=== PATIENT | male | born 1995 | race African-American/Black ===

== ENCOUNTER 2021-07-17 01:09 | Emergency (ER) | payer SELFPAY ==
[2021-07-17] MEDS ORDERED: Ketorolac 30 MG/ML SDV IVPUSH ONE (01:13)
[2021-07-17] MEDS ORDERED: Ondansetron 4 MG/2 ML SDV IVPUSH ONE (01:13)
[2021-07-17] MEDS ORDERED: Sodium Chloride 0.9% 10 ML Syringe FLUSH PRN (01:13)
[2021-07-17] MEDS ORDERED: Sodium Chloride 0.9% 1,000 ML IV ONE (01:13)
[2021-07-17] MEDS ORDERED: Sodium Chloride 0.9% 2.5 ML Syringe FLUSH PRN (01:13)
[2021-07-17 01:44] LABS: BLOOD UREA NITROGEN,BUN 12 mg/dL (7.0-18.0); CARBON DIOXIDE,CO2 24.3 mmol/L (21.0-32.0); CHLORIDE,CL 104 mmol/L (98-107); GLUCOSE RANDOM 159 mg/dL (74-106); LIPASE 68 U/L (73-393); POTASSIUM,K 3.5 mmol/L (3.5-5.1); SODIUM,NA 140 mmol/L (136-148)
== END 2021-07-17 04:07 | disposition home or self-care (01) ==
LOC: MW.ED 01:09
DX: K52.9 Noninfective gastroenteritis and colitis, unspecified (principal); Z88.0 Allergy status to penicillin
CPT/HCPCS: 36415; 74022; 80053; 81001; 83605; 83690; 85025; 96361; 96374; 96375; 99284; J1885; J2405; J3490; J7030

== ENCOUNTER 2022-05-21 13:20 | Emergency (ER) | payer BC ==
[2022-05-21] MEDS ORDERED: Lidocaine 2% Viscous Solution 15 ML UD PO ONE (13:32)
[2022-05-21] MEDS ORDERED: Benzocaine 20% Topical Spray UD MUCMEM ONE (13:32)
== END 2022-05-21 14:29 | disposition home or self-care (01) ==
LOC: MW.ED 13:20
DX: K04.7 Periapical abscess without sinus (principal); K02.9 Dental caries, unspecified; Z88.0 Allergy status to penicillin
CPT/HCPCS: 99282; A9270

== ENCOUNTER 2022-10-09 16:12 | Emergency (ER) | payer OTHER, BC | END 2022-10-09 17:43 | disposition left against medical advice (07) | LOC: MW.ED 16:12 | DX: R07.81 Pleurodynia (principal); M25.512 Pain in left shoulder; Z88.0 Allergy status to penicillin; V49.49XA Driver injured in collision with other motor vehicles in traffic accident, initial encounter; Y92.410 Unspecified street and highway as the place of occurrence of the external cause | CPT/HCPCS: 71101-26-LT; 71101-LT; 99282; 99284 ==

== ENCOUNTER 2023-01-04 12:06 | Emergency (ER) | payer BC ==
[2023-01-04] MEDS ORDERED: Ibuprofen 600 MG Tab PO ONE (14:01)
== END 2023-01-04 14:21 | disposition home or self-care (01) ==
LOC: MW.ED 12:06
DX: H92.01 Otalgia, right ear (principal); Z88.0 Allergy status to penicillin; Z90.49 Acquired absence of other specified parts of digestive tract
CPT/HCPCS: 99282; A9270; 99283

== ENCOUNTER 2023-11-14 07:29 | Emergency (ER) | payer SELFPAY ==
[2023-11-14] MEDS: Lidocaine 2% Viscous Solution 15 ML UD PO ONE (07:57)
== END 2023-11-14 08:01 | disposition home or self-care (01) ==
LOC: MW.ED 07:29
DX: K02.9 Dental caries, unspecified (principal); F17.210 Nicotine dependence, cigarettes, uncomplicated; Z88.0 Allergy status to penicillin; Z79.899 Other long term (current) drug therapy; Z90.49 Acquired absence of other specified parts of digestive tract
CPT/HCPCS: 99282; A9270

== ENCOUNTER 2024-10-19 09:01 | Emergency (ER) | payer SELFPAY ==
[2024-10-19] MEDS ORDERED: Sodium Chloride 0.9% 2.5 ML Syringe FLUSH PRN ×2 (10:19→10:38)
[2024-10-19] MEDS ORDERED: Sodium Chloride 0.9% 10 ML Syringe FLUSH PRN ×2 (10:19→10:38)
[2024-10-19] MEDS ORDERED: Ondansetron 4 MG/2 ML SDV IVPUSH ONE (10:38)
[2024-10-19] MEDS ORDERED: Pantoprazole 40 MG in Sodium Chloride 0.9% 10 ML IVPUSH ONE (10:38)
== END 2024-10-19 10:49 | disposition left against medical advice (07) ==
LOC: MW.ED 09:01
DX: R10.32 Left lower quadrant pain (principal); Z88.0 Allergy status to penicillin; Z90.49 Acquired absence of other specified parts of digestive tract
CPT/HCPCS: 93005; 99283; 99284

== ENCOUNTER 2025-01-16 15:40 | Emergency (ER) | payer SELFPAY ==
[2025-01-16 15:58] LABS: BASOPHILS ABSOLUTE AUTO 0.08 K/uL (0.00-0.20); BASOPHILS PERCENT AUTO 1.3 % (0.0-1.0); EOSINOPHILS ABSOLUTE AUTO 0.15 K/uL (0.00-0.45); EOSINOPHILS PERCENT AUTO 2.4 % (0.0-6.0); IMMATURE GRAN ABSOLUTE AUTO 0.04 K/uL (0.00-0.05); IMMATURE GRAN PERCENT AUTO 0.6 % (0.0-0.4); LYMPHOCYTES ABSOLUTE AUTO 1.84 K/uL (1.00-4.80); LYMPHOCYTES PERCENT AUTO 29.6 % (24.0-44.0); MEAN PLATELET VOLUME 9.7 fL (9.4-12.4); MONOCYTES ABSOLUTE AUTO 0.63 K/uL (0.00-0.80); MONOCYTES PERCENT AUTO 10.1 % (0.0-8.0); NEUTROPHILS ABSOLUTE AUTO 3.47 K/uL (1.80-7.70); NEUTROPHILS PERCENT AUTO 56.0 % (41.0-71.0); NRBC ABSOLUTE 0.00 K/uL (0.00-0.02); NRBC PERCENT 0.0 /100WBC (0.0-0.2); PLATELET COUNT,PLT 355 K/uL (150-400); RED BLOOD CELL COUNT 4.96 M/uL (4.52-5.90); WHITE BLOOD CELL COUNT,WBC 6.21 K/uL (3.9-11.3)
[2025-01-16] MEDS: Ketorolac 30 MG/ML SDV IVPUSH ONE (15:58)
[2025-01-16 16:09] LABS: D-DIMER QUANTITATIVE < 0.19 mg/L FEU (0.00-0.50); INR 1.10 (0.86-1.11); PTT,PARTIAL THROMBOPLSTIN TIME 25.6 SEC (23.9-30.7)
[2025-01-16 16:17] LABS: A/G RATIO 0.9 (0.9-1.6); ALANINE AMINOTRANSFERASE,ALT 29 IU/L (14-63); ASPARTATE AMNIOTRANSFERASE,AST 31 IU/L (15-37); BILIRUBIN TOTAL 0.6 mg/dL (0.2-1.0); BLOOD UREA NITROGEN,BUN 18 mg/dL (7.0-18.0); CARBON DIOXIDE,CO2 28.3 mmol/L (21.0-32.0); CHLORIDE,CL 104 mmol/L (98-107); CREATININE 1.0 mg/dL (0.8-1.3); EST CRCL DRUG DOSING (CG) 99.31 mL/min; ESTIMATED GFR 104 mL/min (>60); ETHANOL BLOOD MEDICAL <3 mg/dL; GLUCOSE RANDOM 87 mg/dL (74-106); POTASSIUM,K 3.1 mmol/L (3.5-5.1); PROTEIN TOTAL,TP 8.1 g/dL (6.4-8.2); SODIUM,NA 143 mmol/L (136-148)
[2025-01-16 16:32] LABS: APPEARANCE,URINE CLEAR; GLUCOSE,URINE NEGATIVE (NEGATIVE); OCCULT BLOOD,URINE NEGATIVE (NEGATIVE)
[2025-01-16 16:41] LABS: AMPHETAMINES SCREEN, URINE NEGATIVE (CUTOFF=500); BUPRENORPHINE SCREEN,URINE NEGATIVE (CUTOFF=10); METHADONE SCREEN, URINE NEGATIVE (CUTOFF=200); METHAMPHETAMINES SCREEN, URINE NEGATIVE (CUTOFF=500); OXYCODONE SCREEN,URINE NEGATIVE (CUT0FF=100); PCP SCREEN,URINE NEGATIVE (CUTOFF=25); THC SCREEN,URINE 20 NG/ML NEGATIVE (CUTOFF=50)
[2025-01-16] MEDS: Potassium Chloride 20 MEQ Tab.ER PO ONE (18:59)
== END 2025-01-16 19:14 | disposition home or self-care (01) ==
LOC: MW.ED 15:40
DX: R07.89 Other chest pain (principal); Z88.0 Allergy status to penicillin; Z90.49 Acquired absence of other specified parts of digestive tract; Z75.3 Unavailability and inaccessibility of health-care facilities
CPT/HCPCS: 36415; 71045; 80053; 80305; 80307; 81003; 83690; 83735; 84484; 85025; 85379; 85610; 85730; 96361; 96374; 99285; A9270; J1885; J7030